=== PATIENT | female | born 1995 ===

== ENCOUNTER 2020-01-06 20:15 | Inpatient (IN) | payer OTHER ==
[2020-01-06] MEDS: OXYTOCIN 20 UNITS in 0.9% NS 20 UNIT/1,000 ML INFUS.BAG IV SCH (21:28)
[2020-01-06] MEDS: ELECTROLYTE-148 SOLN 1,000 ML IV SCH (21:30)
[2020-01-06] MEDS ORDERED: IBUPROFEN 800 MG/8 ML IJ IVPB PRN (21:52)
[2020-01-06] MEDS ORDERED: oxyCODONE HCL 5 MG TABLET PO PRN (21:52)
[2020-01-06] MEDS ORDERED: CITRIC ACID/SODIUM CITRATE 30 ML UNIT-DOSE CUP PO ONE (21:52)
[2020-01-06 21:59] LABS: BASO % 0.6 % (0-2.0); EOS % 0.8 % (0-4.5); HEMATOCRIT 38.8 % (32.4-45.2); HEMOGLOBIN 12.7 GM/dL (10.7-15.3); LYMPH % 36.6 % (8-40); MCH 29.7 pg (25.7-33.7); MCHC 32.8 g/dl (32.0-36.0); MEAN CELL VOLUME 90.7 fl (80-96); MEAN PLT VOLUME 11.4 fl (7.5-11.1); MONO % 4.5 % (3.8-10.2); NEUT % 57.5 % (42.8-82.8); PLATELET COUNT 200 K/MM3 (134-434); RBC 4.27 M/mm3 (3.60-5.2); RDW 13.5 % (11.6-15.6); WHITE BLOOD COUNT 7.5 K/mm3 (4.0-10.0)
--- NOTE | 2020-01-06 22:02 | HP ---
Past Medical History - Primary Care Physician PCP:: Osbaldo Hendrickson - Admission Chief Complaint: zoey twin fully dilated History of Present Illness: Patient presenting fully dilated, with mild vaginal bleeding with urge to push. Bedside sono revealed cephalic/variable lie (oblique) History Source: Patient Limitations to Obtaining History: No Limitations - Past Medical History CUSTOMER SUPPORT REPRESENTATIVE: No: Alzheimer's, CVA, Dementia, Migraine, Multiple Sclerosis, Peripheral Neuropathy, Parkinson's, Seizure, Syncope, TIA, Vertigo, Other Cardiovascular: No: AFIB, Aneurysm, Aortic Insufficiency, Aortic Stenosis, CAD, CHF, Deep Vein Thrombosis, HTN, Hyperlipdemia, SC, Mitral Insufficiency, Mitral Stenosis, Murmur, Pulmonary Hypertension, Other Pulmonary: No: Asthma, Bronchitis, Cancer, COPD, O2 Dependent, Pneumonia, Previously Intubated, Pulmonary Embolus, Pulmonary Fibrosis, Sleep Apnea, Other Gastrointestinal: No: Ascites, Cancer, Constipation, Crohn's Disease, Diverticulitis, Diverticulosis, Esophageal Varices, Gastritis, GERD, GI Bleed, Hemorrhoids, Hiatal Hernia, Inflamatory Bowel Disease, Irritable Bowel Disease, Pancreatitis, Peptic Ulcer Disease, Ulcerative Colitis, Other Hepatobiliary: No: Cirrhosis, Cholelithiasis, Cholecystitis, Choledocholithiasis, Hepatitis A, Hepatitis B, Hepatitis C, Other Renal/: No: Renal Failure, Renal Inusuff, BPH, Cancer, Hematuria, Hemodialysis, Neurogenic Bladder, Renal Calculi, UTI, Other Reproductive: No: Ectopic , Endometriosis, Fibroids, PID, Polycystic Ovary Syndrome, Postmenopausal, Other Heme/Onc: No: Anemia, B12 Deficiency, Bleeding Disorder, Cancer, Current Chemotherapy, Current Radiation Therapy, Hemochromatosis, Hypercoaguable State, Myeloproliferative Synd, Sickle Cell Disease, Sickle Cell Trait, Thrombocytopenia, Other Infectious Disease: No: AIDS, C-Diff, Herpes Zoster, HIV, MRSA, STD's, Tuberculosis, VREF, Other Psych: No: Addictions, Anxiety, Bipolar, Depression, Panic, Psychosis, Schizophrenia, Other Musculoskeletal: No: Bursitis, Chronic low back pain, Hemiparesis, Hemiplegia, Osteoarthritis, Paraplegia, Other Rheumatology: No: Fibromyalgia, Gout, Lupus, Rheumatoid Arthritis, Sarcoidosis, Vasculitis, Other ENT: No: Allergic Rhinitis, Sinusitis, Other Endocrine: No: Ned's Disease, Polo's Disease, Diabetes Insipidus, Diabetes Mellitus, Hyperparathyroidism, Hyperthyroidism, Hypothyroidism, Osteopenia, SIADH, Other Dermatology: No: Basal Cell, Cellulitis, Eczema, Melanoma, Psoriasis, Squamous Cell, Other - Past Surgical History Past Surgical History: Yes: None Hx Myomectomy: No Hx Transabdominal Cerclage: No - Smoking History Smoking history: Never smoked - Alcohol/Substance Use Hx Alcohol Use: No History of Substance Use: reports: None Home Medications - Allergies Allergies/Adverse Reactions: Allergies Allergy/AdvReac Type Severity Reaction Status Date / Time No Known Allergies Allergy Verified 01/06/20 22:00 Family Medical History Family History: Unable to Obtain Review of Systems Findings/Remarks: labor pain, urge to push - Review of Systems Constitutional: reports: No Symptoms Eyes: reports: No Symptoms HENT: reports: No Symptoms Neck: reports: No Symptoms Cardiovascular: reports: No Symptoms Respiratory: reports: No Symptoms Gastrointestinal: reports: No Symptoms Genitourinary: reports: No Symptoms Breasts: reports: No Symptoms Reported Musculoskeletal: reports: No Symptoms Integumentary: reports: No Symptoms Neurological: reports: No Symptoms Endocrine: reports: No Symptoms Hematology/Lymphatic: reports: No Symptoms Psychiatric: reports: No Symptoms Physical Exam - Maternity Constitutional: Yes: Well Nourished HENT: Yes: Atraumatic Neck: Yes: Supple Cardiovascular: Yes: Regular Rate and Rhythm - Abdominal Exam/OB Presentation: Vertex (baby A), Oblique (baby B) Contractions: Yes Monitor Mode: External Heart Rate (range): 110/120 Accelerations: None (unable to obtained NST) - Vaginal Exam/OB Dilatation (cm): 10 Effacement (%): 100 Amniotic Fluid: Yes: Blood Stained (baby A) Presentation: Vertex/Position (baby A and oblique baby B) Station: +1 - Physical Exam Edema: LLE: Trace, RLE: Trace Integumentary: Yes: WNL ...Motor Strength: WNL Psychiatric: Yes: Alert, Oriented Imaging - Results Ultrasound: Report Reviewed Assessment/Plan 24 y/o @ 35.3wks zoey twin , active labor ready for delivery, FHR 110's and 120's for baby A and B respectively x 2 via bedside sono. Patient was counseled bedside regarding route of vaginal delivery for baby A as it is imminent. Baby B route of delivery will be determined following VD of baby A. -Proceed to OR for delivery -Anesthesia and NICU notified. -All questions answered and verbal consent obtained
[2020-01-06 22:08] LABS: INR 0.83 (0.83-1.09); PROTHROMBIN TIME (PATIENT) 9.8 SEC (9.7-13.0)
[2020-01-06 22:28] LABS: ALBUMIN 2.3 g/dl (3.4-5.0); BILIRUBIN,TOTAL 1.1 mg/dL (0.2-1); CALCIUM 8.4 mg/dL (8.5-10.1); CREATININE 0.8 mg/dL (0.55-1.3); POTASSIUM 3.6 mmol/L (3.5-5.1); TOT PROT 6.8 g/dl (6.4-8.2)
[2020-01-06] MEDS: METHYLERGONOVINE MALEATE 0.2 MG TABLET (FP) PO SCH (22:30)
--- NOTE | 2020-01-06 22:53 | PN ---
Delivery - Delivery Type of Anesthesia: None Episiotomy/Laceration: None EBL (cc): 800 (100 for vaginal delivery) Delivery, Single - Stages of Labor Placenta: Yes: Manual Removal - Condition of Privacy Compliance Manager/Automation Qa Tester Present: No Infant Gender: Male Position: OA (bloody stained amnotic fluid noted on AROM) Remarks - Remarks Remarks: Infant's head delivered with maternal expulsive efforts in OR, OA and restituted to VLADIMIR. No nuchal cord and moderately bloody amniotic fluid noted on AROM. Cord clamped and cut, segment for gases obtained. Infant was handed off to NICU staff. Baby A's placenta was clamped with small yellow plastic clamped. mild vaginal bleeding noted. Exam revealed 9/100/-3 and bedside sono revealed double footling presentation. Baby B FHR was documented as 132 BPM ( 22 x 10 seconds) immediately following delivery of baby A and 150 BPM following spinal anesthesia. Urgent delivery proceeded for baby B. Patient consented verbally.
--- NOTE | 2020-01-06 23:05 | OP ---
Operative Note - Note: Operative Date: 01/06/20 (41007) Operation: 24 y/o @ 35.3wks, breech presentation of Baby B following VD of baby A Findings: see dictation Post-Operative Diagnosis: Same as Pre-op Surgeon: Osbaldo Hendrickson Motor Man: Jefferson Rodriguez Anesthesia: Spinal Specimens Removed: placenta x 2. Baby A with plastic clamp. Baby B with metal clamp Estimated Blood Loss (mls): 700 Drains, Volume Out (mls): 100 (concentrated urine)
[2020-01-06] MEDS ORDERED: AZITHROMYCIN 500 MG TABLET PO ONE (23:38)
--- NOTE | 2020-01-06 23:53 | PN ---
Progress Note (short form) - Note Progress Note: Patient evaluated for increased VB and intra-op findings discussed and all questions answered vitals: as recorded stable SVE: fundus at the umbilicus and approximately 150ml of clots expressed from lower segment, no active bleeding noted. Fundus 2 cm below umbilicus at conclusion of exam A/P: POD # 0 in stable condition S/P VD of twin A and CD of twin B with a total of 200ml post-op bleeding. Total EBL 1000ml and methergine series initiated and not actively bleeding. -Continue methergine series -Am CBC -post-op and PP care -Azithromycin and additional dose of ancef 8hr post-op
[2020-01-07 01:12] LABS: CORD BASE EXCESS -3.4 mmol/L (0-2); CORD HCO3 22.3 mmHg (20-29); CORD PCO2 42.7 mmHg (30-78)
[2020-01-07 01:14] LABS: CORD pH 7.336 (7.14-7.44)
[2020-01-07 01:17] LABS: CORD HCO3 22.2 mmHg (20-29)
[2020-01-07 01:18] LABS: CORD pH 7.208 (7.14-7.44)
[2020-01-07 01:34] VITALS: BMI 28.5
[2020-01-07 02:00] LABS: CORD HCO3 22.3 mmHg (20-29); CORD PCO2 58.7 mmHg (30-78); CORD pH 7.198 (7.14-7.44)
[2020-01-07] MEDS: METHYLERGONOVINE MALEATE 0.2 MG TABLET (FP) PO SCH ×9 (02:00→20:35)
[2020-01-07 02:03] LABS: CORD BASE EXCESS -8.7 mmol/L (0-2); CORD HCO3 19.7 mmHg (20-29); CORD PCO2 51.7 mmHg (30-78); CORD pH 7.199 (7.14-7.44)
[2020-01-07] MEDS ORDERED: IBUPROFEN 800 MG/8 ML IJ IVPB ONE (02:33)
[2020-01-07] MEDS ORDERED: OXYTOCIN 20 UNITS in 0.9% NS 20 UNIT/1,000 ML INFUS.BAG IV ONE (02:37)
[2020-01-07] MEDS: ACETAMINOPHEN 325 MG TABLET (FP) PO PRN ×3 (06:28→20:37)
[2020-01-07] MEDS ORDERED: ceFAZolin 2 GRAM PREMIX BAG IVPB ONE (06:30)
--- NOTE | 2020-01-07 07:51 | PN ---
Post Progress Note - Subjective Subjective: Patient is doing well, no nausea, no vomiting, garcía in place Post Day: 1 Type of Delivery: Primary C/S Vital Signs: Vital Signs Temperature 97.7 F 01/07/20 06:07 Pulse Rate 69 01/07/20 06:07 Respiratory Rate 20 01/07/20 06:07 Blood Pressure 114/77 01/07/20 06:07 O2 Sat by Pulse Oximetry (%) 98 01/06/20 23:00 Breast Exam: Yes: Other Uterus: Yes: Fundus Firm Incision: Yes: Other Abdomen/GI: Yes: Other Lochia, amount: Moderate Extremities: Yes: Calves non-tender Perineum: Yes: Intact Activity: Ambulating - Labs Labs: CBC WBC 7.5 K/mm3 (4.0-10.0) 01/06/20 20:40 RBC 4.27 M/mm3 (3.60-5.2) 01/06/20 20:40 Hgb 12.7 GM/dL (10.7-15.3) 01/06/20 20:40 Hct 38.8 % (32.4-45.2) 01/06/20 20:40 MCV 90.7 fl (80-96) 01/06/20 20:40 MCH 29.7 pg (25.7-33.7) 01/06/20 20:40 MCHC 32.8 g/dl (32.0-36.0) 01/06/20 20:40 RDW 13.5 % (11.6-15.6) 01/06/20 20:40 Plt Count 200 K/MM3 (134-434) 01/06/20 20:40 MPV 11.4 fl (7.5-11.1) H 01/06/20 20:40 Absolute Neuts (auto) 4.3 K/mm3 (1.5-8.0) 01/06/20 20:40 Neutrophils % 57.5 % (42.8-82.8) 01/06/20 20:40 Lymphocytes % 36.6 % (8-40) 01/06/20 20:40 Monocytes % 4.5 % (3.8-10.2) 01/06/20 20:40 Eosinophils % 0.8 % (0-4.5) 07/26/20 20:40 Basophils % 0.6 % (0-2.0) 01/06/20 20:40 Nucleated RBC % 0 % (0-0) 01/06/20 20:40 Assessment/Plan 24 y/o on POD # 1 in stable condition, babies in stable conditions, S/P VD of baby A and CD of baby B for breech presentation at 35.3wks -F/U AM CBC -COntinue PP/post-op care -Encourage ambulation
--- NOTE | 2020-01-07 07:56 | PN ---
Progress Note (short form) - Note Progress Note: Patient received PO methergine late despite order and correction for miscue done.
[2020-01-07] MEDS ORDERED: METHYLERGONOVINE MALEATE 0.2 MG TABLET (FP) PO SCH (08:00)
[2020-01-07 08:55] LABS: BASO % 0.7 % (0-2.0); EOS % 0.2 % (0-4.5); HEMATOCRIT 30.5 % (32.4-45.2); LYMPH % 15.9 % (8-40); MCH 29.4 pg (25.7-33.7); MCHC 32.9 g/dl (32.0-36.0); MEAN CELL VOLUME 89.3 fl (80-96); MEAN PLT VOLUME 10.4 fl (7.5-11.1); MONO % 6.7 % (3.8-10.2); NEUT % 76.5 % (42.8-82.8); PLATELET COUNT 156 K/MM3 (134-434); RBC 3.41 M/mm3 (3.60-5.2); RDW 13.5 % (11.6-15.6); WHITE BLOOD COUNT 15.9 K/mm3 (4.0-10.0)
[2020-01-07] MEDS: IBUPROFEN 600 MG TABLET (FP) PO PRN ×2 (15:53→20:37)
[2020-01-07] MEDS: SIMETHICONE 80 MG TAB.CHEW (FP) PO PRN ×2 (15:54→20:39)
--- NOTE | 2020-01-07 19:25 | OP ---
DATE OF OPERATION: 01/06/2020 PREOPERATIVE DIAGNOSIS: A 24-year-old 3, para 2-1-0-3 at 35 weeks 3 days, breech presentation baby B following delivery of baby A. POSTOPERATIVE DIAGNOSIS: A 24-year-old 3, para 2-1-0-3 at 35 weeks 3 days, breech presentation baby B following delivery of baby A. PROCEDURE: Primary low transverse section urgent. ANESTHESIA: Spinal. ESTIMATED BLOOD LOSS: Approximately 100 mL of blood. INTRAVENOUS FLUIDS: Per anesthesia. URINE OUTPUT: 700 mL of concentrated urine. COMPLICATIONS: None. FINDINGS: Patient was taken to operating room due to diamniotic dichorionic twin with baby A cephalic, fully dilated +2 station ready to deliver. Viable, live for baby B. Following delivery of baby A, bloody stain amniotic fluid noted and small gush of blood following delivery of baby A. Amniotic fluid for baby B was clear, and mild amount of vaginal bleeding following delivery of baby A. Normal anterior abdominal anatomy. The lower uterine segment was effaced. Infant was in double footling breech presentation. No nuchal cord present. Live, viable male. Placenta was delivered manually, and small clot noted behind baby A's placenta approximately 10%-15% in size. Placentas were sent to Pathology. Bladder dome and the rectus muscle fascial interface was noted to be intact. Excellent hemostasis at the conclusion of the procedure and fundus firm. Bilateral tubes and ovaries were consistent with normal anatomy. DESCRIPTION OF PROCEDURE: The patient was taken to the operating room. Following delivery of baby A as previously mentioned, decision for urgent section was made. The patient was prepped and draped in an urgent fashion following regional anesthesia. Patient was prepped with Betadine. Appropriate time-out took place. Pfannenstiel skin incision was done with a scalpel and carried through to underlying fascia with the Bovie. The fascia was incised with the Bovie, extended laterally in blunt dissection. The underlying rectus muscles were dissected off bluntly and sharply. Rectus muscles were in the midline, and the peritoneum was entered bluntly. Bladder blade was placed, and the lower uterine segment transverse incision was made with a scalpel approximately 5 cm above the vesicouterine junction. The incision was extended laterally with blunt dissection. Inferior aspect of placenta encountered with a small, dark clot. The amniotomy took place with clear amniotic fluid inferior to the placental edge, and the was delivered with breech maneuvers without difficulty. Umbilical cord was clamped and cut, and the infant was handed off to the NICU staff. Sample for gases and blood were obtained. The placentas were delivered manually and intact with findings as previously mentioned. The uterus was exteriorized, and the intrauterine cavity was cleared of all clot and debris. The lower uterine segment incision was reapproximated with 1-0 Polysorb running, locked sutures. Excellent structural reapproximation achieved. One [id number] stitch of 2-0 Vicryl was required in the midline to control minimal oozing. Uterus was internalized to the pelvic cavity, and gutters were cleared of all clot and debris. Lower uterine segment incision was, again, hemostatically stable. Bladder dome and rectus muscle fascial interface were examined, dry, and atraumatic. Rectus muscles were approximated manually at the midline. Facial incision was approximated with 0 Polysorb running, nonlocked suture. Excellent structural reapproximation achieved and confirmed by digital palpation by the surgeon. Subcutaneous tissues were copiously irrigated and bleeders neutralized with Bovie cautery. Skin incision was approximated with surgical letty. Patient in stable condition. Instrument count was reported as correct x2 by the staff. JUANIS BLANC MD [id number] MTDD
[2020-01-07] MEDS ORDERED: BISACODYL 10 MG SUPP.RECT RC PRN (21:52)
--- NOTE | 2020-01-08 08:07 | PN ---
Post Progress Note - Subjective Subjective: Pain controlled. OOB, ambulating. Voiding freely. Breastfeed/pumping Post Day: 2 Type of Delivery: Primary C/S Vital Signs: Vital Signs Temperature 98.3 F 01/07/20 22:00 Pulse Rate 82 01/07/20 22:00 Respiratory Rate 18 01/07/20 22:00 Blood Pressure 115/65 01/07/20 22:00 O2 Sat by Pulse Oximetry (%) 100 01/07/20 10:00 Uterus: Yes: Fundus below umbilicus Incision: Yes: Dressing dry and intact, Oozing Abdomen/GI: Yes: Abdomen soft, Tolerating PO Lochia: Yes: Rubra Lochia, amount: Small Extremities: Yes: Calves non-tender Perineum: Yes: Intact Activity: Ambulating - Labs Labs: CBC WBC 15.9 K/mm3 (4.0-10.0) H 01/07/20 08:34 RBC 3.41 M/mm3 (3.60-5.2) L 01/07/20 08:34 Hgb 10.0 GM/dL (10.7-15.3) L 01/07/20 08:34 Hct 30.5 % (32.4-45.2) L D 01/07/20 08:34 MCV 89.3 fl (80-96) 01/07/20 08:34 MCH 29.4 pg (25.7-33.7) 01/07/20 08:34 MCHC 32.9 g/dl (32.0-36.0) 01/07/20 08:34 RDW 13.5 % (11.6-15.6) 01/07/20 08:34 Plt Count 156 K/MM3 (134-434) D 01/07/20 08:34 MPV 10.4 fl (7.5-11.1) 01/07/20 08:34 Absolute Neuts (auto) 12.1 K/mm3 (1.5-8.0) H 01/07/20 08:34 Neutrophils % 76.5 % (42.8-82.8) D 01/07/20 08:34 Lymphocytes % 15.9 % (8-40) D 01/07/20 08:34 Monocytes % 6.7 % (3.8-10.2) 01/07/20 08:34 Eosinophils % 0.2 % (0-4.5) 01/07/20 08:34 Basophils % 0.7 % (0-2.0) 01/07/20 08:34 Nucleated RBC % 0 % (0-0) 01/07/20 08:34 Assessment/Plan 24yo s/p of Twin A, PLTCS for Twin B, POD#3 Routine PP care PO pain control Labs reviewed Babies in NICU, d/c to home POD#4 Gentry Alvarez MD
[2020-01-08] MEDS: IBUPROFEN 600 MG TABLET (FP) PO PRN (08:26)
[2020-01-08] MEDS: ACETAMINOPHEN 325 MG TABLET (FP) PO PRN (08:27)
[2020-01-08] MEDS: SIMETHICONE 80 MG TAB.CHEW (FP) PO PRN (08:27)
[2020-01-08] MEDS ORDERED: DIPHTH,PERTUSS(ACELL),TET 0.5 ML DISP.SYRIN IM ONE (10:00)
[2020-01-08] MEDS: OXYTOCIN 20 UNITS in 0.9% NS 20 UNIT/1,000 ML INFUS.BAG IV SCH (21:52)
[2020-01-08] MEDS: ELECTROLYTE-148 SOLN 1,000 ML IV SCH (21:52)
[2020-01-09] MEDS: ACETAMINOPHEN 325 MG TABLET (FP) PO PRN (00:22)
[2020-01-09] MEDS: SIMETHICONE 80 MG TAB.CHEW (FP) PO PRN (00:22)
[2020-01-09] MEDS: IBUPROFEN 600 MG TABLET (FP) PO PRN (00:22)
--- NOTE | 2020-01-09 06:44 | DS ---
Physical Exam-IRRIGATION SYSTEM INSTALLER Vital Signs: Vital Signs Temperature 98.6 F 01/08/20 22:00 Pulse Rate 87 01/08/20 22:00 Respiratory Rate 18 01/08/20 22:00 Blood Pressure 134/80 01/08/20 22:00 O2 Sat by Pulse Oximetry (%) 100 01/08/20 09:56 Constitutional: Yes: Well Nourished, Other (c/o pain scale 4/10) Eyes: Yes: WNL HENT: Yes: WNL Neck: Yes: WNL Cardiovascular: Yes: WNL Respiratory: Yes: WNL Gastrointestinal: Yes: WNL, Normal Bowel Sounds, Soft, Other (bm done). No: Distention Renal/: Yes: WNL. No: CVA Tenderness - Left, CVA Tenderness - Right ....Post : Yes: Uterus firm, Uterus non-tender, Moderate lochia rubra Breast(s): Yes: WNL, Other (attempting breast pumping) Extremities: Yes: WNL. No: Calf Tenderness Edema: No Wound/Incision: Yes: Clean/Dry, [place] Intact, Open to air. No: Draining, Reddened, Bleeding, Excoriated Neurological: Yes: WNL ...Motor Strength: WNL Psychiatric: Yes: WNL, Alert, Oriented Labs: CBC, BMP 01/07/20 08:34 01/06/20 20:40 Laboratory Tests 01/07/20 04:00 COVID-19 ([place]) Not detected Delivery - Delivery Type of Anesthesia: Spinal Episiotomy/Laceration: None EBL (cc): 1,000 Delivery, Single - Stages of Labor Placenta: Yes: Manual Removal - Condition of Children'S Aide/Informatics Application Analyst Present: No Infant Gender: Male Position: OA (bloody stained amnotic fluid noted on AROM) - Feeding Plan Initial Plan: Elected not to breastfeed exclusively throughout hospitalization Delivery, Multiple Births - Stages of Labor First Stage Date: 01/06/20 Time: 15:00 Second Stage Date: 01/06/20 Time: 20:20 Delivery Baby "A" Date: 01/06/20 Time: 20:56 Delivery Baby "B" Date: 01/06/20 Time: 21:25 Placenta/Membranes "A" Date: 01/06/20 Time: 21:28 Placenta/Membranes "B" Date: 01/06/20 Time: 21:28 - Condition of Multiple Births [place] 1 (A) Infant Gender: Male Weight: 5 lb 3 oz Position: OA Total Hours ROM (HRS/MINS): unknown 2 (B) Children'S Aide/Informatics Application Analyst Present: Yes Children'S Aide: Parisa Sorto Gender: Male Weight: 5 lb 4 oz Total Hours ROM (HRS/MINS): Unknown - 1 (A) 1 Minute Score: 9 1 (A) 5 Minutes Score: 9 [place] 2 (B) 1 Minute Score: 8 2 (B) 5 Minutes Score: 9 Remarks - Remarks Remarks: s/p Twins, baby A Vag Del f/b Baby B : LFTC/S Day #3 Both babies in NICU pt requests for discharge today . she is instructed to go to the clinic in 1 wk for letty removal po instructions given Discharge Summary Problems reviewed: Yes Reason For Visit: LABOR Condition: Stable - Instructions Diet, Activity, Other Instructions: return to regular diet as tolerated, avoid heavy lifting, follow up within a week from discharge from hospital, call MD with any questions or concerns. RTC 1 week for letty removal Referrals: Arianne Alvarez MD [Staff Physician] - Disposition: HOME - Home Medications Comprehensive Discharge Medication List: Ambulatory Orders Acetaminophen [Tylenol] 650 mg PO Q6H PRN #30 capsule MDD 5 01/07/20 Ibuprofen 600 mg PO Q6H PRN #30 tablet 01/07/20 Miscellaneous Medical Supply [Breast Pump, Electronic] 1 each NR ASDIR #1 unit 01/07/20 Oxycodone HCl 5 mg PO Q6H PRN #12 capsule MDD 5 01/07/20 Oxycodone HCl 5 mg PO Q6H PRN #12 capsule MDD 5 01/07/20 Vitamins (Sjr) - 1 tab PO DAILY 01/07/20
[2020-01-09 09:03] VITALS: BP 119/71; PULSE 106; TEMP 98.2
[2020-01-09 09:16] LABS: BASO % 0.7 % (0-2.0); EOS % 4.3 % (0-4.5); HEMATOCRIT 27.3 % (32.4-45.2); LYMPH % 29.9 % (8-40); MCH 29.7 pg (25.7-33.7); MCHC 33.1 g/dl (32.0-36.0); MEAN CELL VOLUME 89.6 fl (80-96); MEAN PLT VOLUME 9.4 fl (7.5-11.1); MONO % 6.5 % (3.8-10.2); NEUT % 58.6 % (42.8-82.8); PLATELET COUNT 233 K/MM3 (134-434); RBC 3.05 M/mm3 (3.60-5.2); RDW 13.4 % (11.6-15.6); WHITE BLOOD COUNT 9.3 K/mm3 (4.0-10.0)
--- NOTE | 2020-01-09 13:16 | PATH ---
Surgical Pathology Report Patient Name: JON PASTOR [facility]. Rec. #: [id number] /Age/Gender: 1995 (Age: 24) / F Account: [id number] Location: [facility] OBS/SKIDDER OPERATOR Taken: 01/06/2020 Received: 01/07/2020 Reported: 01/09/2020 Physicians: Osbaldo Hendrickson MD Specimen(s) Received A: PLACENTA,TWIN BABY A B: PLACENTA,TWIN BABY B Clinical History 35.3 weeks twin gestation in labor Final Diagnosis A & B: PLACENTA: DIAMNIOTIC, DICHORIONIC, SEPARATE, TWIN, THIRD TRIMESTER PLACENTA. PLACENTA "A" SHOWS MILD NONSPECIFIC CHRONIC DECIDUITIS, A THREE-VESSELS CORD AND MEMBRANES WITH NO DIAGNOSTIC ABNORMALITIES. PLACENTA "B" SHOWS MILD NONSPECIFIC CHRONIC DECIDUITIS, PERIVILLOUS FIBRIN DEPOSITION, AND ONE FOCUS OF INTRAPARENCHYMAL HEMORRHAGE (1.8 CM DIMENSION), A THREE-VESSELS CORD AND MEMBRANES WITH NO DIAGNOSTIC ABNORMALITIES. Electronically Signed Kandy Cruz M.D. Gross Description A. The specimen is received fresh labeled placenta A and is a 434 gram, 18 x15 x 1.7m. placenta with attached membranes and umbilical cord. The attached membranes are glistening, translucent, and insert marginally. The umbilical cord measures 16 cm. in length and averages 1.5 cm. in diameter. The cord inserts eccentrically, 3 centimeter to the nearest margin. No true knots or strictures are identified. Cut surface of the umbilical cord reveals 3 vessels. Sectioning reveals red-brown, spongy parenchyma. No lesions are identified. Heel Coverer Machine Operator sections are submitted in three cassettes as follows: 1- membrane rolls and umbilical cord; 2-3- full thickness sections of placenta. B. The specimen is received fresh labeled placenta B and is a 397 gram, 18 x16.5 x 2.0cm. placenta with attached membranes and umbilical cord. The attached membranes are glistening, translucent, and insert marginally. The umbilical cord measures 16 cm. in length and averages 1.5 cm. in diameter. The cord inserts centrally, 6 centimeter to the nearest margin. No true knots or strictures are identified. Cut surface of the umbilical cord reveals 3 vessels. Sectioning reveals red-brown, spongy parenchyma. One focus of hemorrhage measuring 1.8 cm is noted. Heel Coverer Machine Operator sections are submitted in three cassettes as follows: 1- membrane rolls and umbilical cord; 2-3- full thickness sections of placenta with hemorrhage. _ KWS/01/07/2020 sulki/01/07/2020
== END 2020-01-09 12:20 | disposition home or self-care (01) | DRG 540 ==
LOC: JLDR 20:15 → J3W 01-07 03:55
PROVIDERS: ADMIT Student in an Organized Health Care Education/Training Program; ATTEND Student in an Organized Health Care Education/Training Program
PROC: 10D00Z1 Extraction of Products of Conception, Low, Open Approach (ICD-10-PCS; principal; 2020-01-06)
DX: O30.003 Twin pregnancy, unspecified number of placenta and unspecified number of amniotic sacs, third trimester (principal); O60.14X0 Preterm labor third trimester with preterm delivery third trimester, not applicable or unspecified; Z3A.35 35 weeks gestation of pregnancy; O32.1XX0 Maternal care for breech presentation, not applicable or unspecified; Z37.2 Twins, both liveborn
CPT/HCPCS: 36415; 36600; 80053; 82803; 85025; 85610; 86780; 86850; 86900; 86901; 88307-TC; 90715; U0003